=== PATIENT | female | born 1950 | race Caucasian/White ===

== ENCOUNTER 2023-11-26 08:49 | Day surgery (SDC) | payer MEDICARE, BC ==
[~2023-11-26 08:49] MED LIST: Sodium Chloride 0.9% 10 ML Syringe FLUSH PRN
[2023-11-26] MEDS: Lactated Ringers 1,000 ML IV SCH (09:15)
[2023-11-26] MEDS ORDERED: Propofol 200 MG/20 ML SDV ONE ×3 (09:42→10:26)
[2023-11-26] MEDS ORDERED: fentaNYL 100 MCG/2 ML SDV ONE (09:42)
[2023-11-26] MEDS ORDERED: Midazolam 1 MG/ML 2 ML SDV ONE (10:04)
[2023-11-26 11:13] VITALS: BP 114/63; PULSE 60
== END 2023-11-26 12:15 | disposition home or self-care (01) ==
LOC: VM.SDS 08:49
PROVIDERS: ATTEND Family Medicine
DX: Z12.11 Encounter for screening for malignant neoplasm of colon (principal); D12.0 Benign neoplasm of cecum; D12.6 Benign neoplasm of colon, unspecified; K62.1 Rectal polyp; I12.9 Hypertensive chronic kidney disease with stage 1 through stage 4 chronic kidney disease, or unspecified chronic kidney disease; N18.30 Chronic kidney disease, stage 3 unspecified; E78.5 Hyperlipidemia, unspecified; E03.9 Hypothyroidism, unspecified; K21.9 Gastro-esophageal reflux disease without esophagitis; Z87.891 Personal history of nicotine dependence; Z79.899 Other long term (current) drug therapy
CPT/HCPCS: 00811; 88305; 99100; J2250; J2704; J3010; J7120